=== PATIENT | female | born 1975 | race Caucasian/White ===

== ENCOUNTER 2021-02-05 09:53 | Emergency (ER) | payer OTHER, SELFPAY | END 2021-02-05 10:49 | disposition home or self-care (01) | LOC: CSHERS 09:53 | DX: S60.221A Contusion of right hand, initial encounter (principal); E03.9 Hypothyroidism, unspecified; F17.290 Nicotine dependence, other tobacco product, uncomplicated; Z79.899 Other long term (current) drug therapy; W01.0XXA Fall on same level from slipping, tripping and stumbling without subsequent striking against object, initial encounter ==

== ENCOUNTER 2021-10-06 19:22 | Emergency (ER) | payer SELFPAY | END 2021-10-06 21:02 | disposition left against medical advice (07) | LOC: CSHERS 19:22 | DX: R06.02 Shortness of breath (principal); F17.290 Nicotine dependence, other tobacco product, uncomplicated; E03.9 Hypothyroidism, unspecified; Z79.899 Other long term (current) drug therapy | CPT/HCPCS: 93005 ==